=== PATIENT | female | born 1965 | race Two or more races ===

== ENCOUNTER 2022-04-05 07:09 | Day surgery (SDC) | payer OTHER ==
[~2022-04-05] VITALS: Ht 157.5 cm; Wt 52.2 kg
[2022-04-05] MEDS ORDERED: diphenhydrAMINE 50 MG/ML VIAL ONE (08:03)
[2022-04-05] MEDS ORDERED: fentaNYL citrate 0.05 MG/ML VIAL ONE ×2 (08:03)
[2022-04-05] MEDS ORDERED: MIDAZOLAM 2 MG/2 ML VIAL ONE ×2 (08:04→08:38)
[2022-04-05] MEDS ORDERED: fentaNYL citrate 0.05 MG/ML VIAL IVP ONE (13:40)
[2022-04-05] MEDS ORDERED: MIDAZOLAM 2 MG/2 ML VIAL IVP ONE (13:40)
== END 2022-04-05 10:25 | disposition home or self-care (01) ==
LOC: MMU 07:09 → MDS 07:09
PROVIDERS: ATTEND Internal Medicine Gastroenterology
DX: Z12.11 Encounter for screening for malignant neoplasm of colon (principal); R63.4 Abnormal weight loss; D12.2 Benign neoplasm of ascending colon; K31.7 Polyp of stomach and duodenum; E78.5 Hyperlipidemia, unspecified; K31.89 Other diseases of stomach and duodenum; E03.9 Hypothyroidism, unspecified; Z79.899 Other long term (current) drug therapy; Z20.822 Contact with and (suspected) exposure to COVID-19
CPT/HCPCS: 43239; 45385; 81025; 87426; 88305; 88312; 88313; 88342; J2250; J3010; J1200